=== PATIENT | male | born 1995 | race Caucasian/White ===

== ENCOUNTER 2019-09-27 23:46 | Emergency (ER) | payer SELFPAY ==
[~2019-09-27] VITALS: Ht 175.3 cm; Wt 52.3 kg
[2019-09-27 23:49] VITALS: Ht 175.3 cm; Wt 52.3 kg
[2019-09-28 00:43] LABS: BASOPHILS 0 % (0-2); CALC OSMOLALITY 276 mosm/kg (275-300); CALCIUM 8.8 mg/dL (8.5-10.1); CARBON DIOXIDE 23.7 mmol/L (21.0-32.0); CHLORIDE - SERUM 105 mmol/L (98-107); CREATININE - SERUM 0.9 mg/dL (0.6-1.3); GLUCOSE 103 mg/dL (74-106); HEMATOCRIT 43.4 % (42.0-54.0); HEMOGLOBIN 14.7 g/dL (13.5-17.5); IMMATURE GRANULOCYTES 0.1 % (0-5); MCH 27.4 pg (26.0-34.0); MCHC 33.9 g/dL (31.0-37.0); MEAN PLATELET VOLUME 9.7 fL (7.4-10.4); NEUTROPHILS 56.9 % (40-80); PLATELET COUNT 258 10x3/uL (130-400); POTASSIUM - SERUM 3.7 mmol/L (3.5-5.1); RBC 5.36 10x6/uL (4.20-6.10); RDW 13.6 % (11.5-14.5); SODIUM 140 mmol/L (136-145); UREA NITROGEN 8 mg/dL (7-18); WBC 6.9 10x3/uL (4.8-10.8); eGFR NON AFRICAN AMERICAN > 90 mL/min (90-120)
[2019-09-28 01:04] LABS: ALBUMIN 3.7 g/dL (3.4-5.0); ALKALINE PHOSPHATASE 87 U/L (46-116); ALT (SGPT) 17 U/L (10-68); BILIRUBIN - TOTAL 0.38 mg/dL (0.2-1.3); PROTEIN - SERUM 6.7 g/dL (6.4-8.2); TROPONIN-I < 0.017 ng/mL (0.000-0.060)
[2019-09-28] MEDS ORDERED: SYNTHROID25 MCG PO (01:15)
[2019-09-28 01:24] VITALS: BP 128/94
== END 2019-09-28 01:25 | disposition home or self-care (01) ==
LOC: D.ER 23:46
PROVIDERS: Family Medicine
DX: S09.8XXA Other specified injuries of head, initial encounter (principal); W19.XXXA Unspecified fall, initial encounter; E03.9 Hypothyroidism, unspecified; Z72.0 Tobacco use

== ENCOUNTER 2019-12-15 15:25 | Emergency (ER) | payer MEDICAID ==
[~2019-12-15] VITALS: Ht 175.3 cm; Wt 54.5 kg
[~2019-12-15 15:25] MED LIST: SYNTHROID25 MCG PO
[2019-12-15 15:27] VITALS: Ht 175.3 cm; Wt 54.5 kg
[2019-12-15 16:29] LABS: UDS - AMPHET NEGATIVE QUAL (NEGATIVE); UDS - BARB NEGATIVE QUAL (NEGATIVE); UDS - BENZO NEGATIVE QUAL (NEGATIVE); UDS - COCAINE NEGATIVE QUAL (NEGATIVE); UDS - OPIATE NEGATIVE QUAL (NEGATIVE); UDS - PCP NEGATIVE QUAL (NEGATIVE); UDS - THC NEGATIVE QUAL (NEGATIVE)
[2019-12-15 16:31] LABS: BILIRUBIN NEGATIVE (NEGATIVE); GLUCOSE NEGATIVE (NEGATIVE); KETONE NEGATIVE (NEGATIVE); NITRITE NEGATIVE (NEGATIVE); SPECIFIC GRAVITY 1.025 (1.005-1.020); UROBILINOGEN NORMAL (NORMAL)
[2019-12-15] MEDS ORDERED: VISTARIL50 MG PO (16:53)
[2019-12-15 17:00] VITALS: BP 121/74
== END 2019-12-15 17:01 | disposition home or self-care (01) ==
LOC: D.ER 15:25
PROVIDERS: Family Medicine
DX: F41.9 Anxiety disorder, unspecified (principal)